=== PATIENT | male | born 1950 | race Caucasian/White ===

== ENCOUNTER 2017-11-14 06:05 | Emergency (ER) | payer MEDICARE, OTHER ==
[2017-11-14 07:03] LABS: URINE PH (Dip) POC 6.5 (5.0-8.5)
[2017-11-14 07:03] LABS: URINE BLOOD (Dip) POC Negative (NEGATIVE); URINE GLUCOSE (Dip) POC Negative (NEGATIVE); URINE KETONES (Dip) POC Negative (NEGATIVE); URINE LEUKOCYTE EST (Dip) POC Negative (NEGATIVE); URINE NITRITE (Dip) POC Negative (NEGATIVE); URINE TOTAL PROTEIN POC Negative (NEGATIVE)
== END 2017-11-14 07:42 | disposition home or self-care (01) ==
LOC: FTE 06:05
DX: R30.0 Dysuria (principal)
CPT/HCPCS: 81003; 87086; 87591; 99283